=== PATIENT | female | born 1965 | race Caucasian/White ===

== ENCOUNTER → 2019-01-16 | Outpatient (CLI) | payer BC ==
--- NOTE | 2019-01-16 15:04 | Diagnostic Imaging Report ---
INDICATION: History of kidney stones. COMPARISON: 03/28/2007. FINDINGS: Two frontal radiographic views of the abdomen were obtained and show nondistended loops of small bowel. [id number]-sd-[id number] air and stool is noted scattered throughout the colon. No unexpected extraosseous calcifications or radiopaque foreign bodies are seen. Surgical clips are noted within the right upper abdominal quadrant. Bony structures show no gross acute abnormalities. IMPRESSION: 1. Nondistended small bowel gas pattern. 2. No unexpected extraosseous calcifications. Dictated by: Dictated on workstation # [id number]
== END ==
LOC: RAD FS 13:08
PROVIDERS: ATTEND Urology
DX: Z03.89 Encounter for observation for other suspected diseases and conditions ruled out (principal); Z87.442 Personal history of urinary calculi
CPT/HCPCS: 74018

== ENCOUNTER 2019-04-09 04:03 | Emergency (ER) | payer BC ==
[~2019-04-09] VITALS: Ht 152 cm; Wt 86.0 kg
[2019-04-09] MEDS ORDERED: morphine INJ 10 MG/ML 1ML (SYR OR VIAL) IVP STA (04:20)
[2019-04-09] MEDS ORDERED: ONDANSETRON 4 MG/2 ML (SDV) Z0FRAN IVP ONE (04:30)
[2019-04-09] MEDS ORDERED: NS IV 1000 ML 1,000 ML IV SCH (04:30)
[2019-04-09] MEDS ORDERED: KETOROLAC 30 MG/ML VIAL IVP ONE (04:30)
[2019-04-09 04:54] LABS: HEMATOCRIT 41 % (35-52); HEMOGLOBIN 12.9 G/DL (11.5-16.0); MEAN CORPUSCULAR HEMOGLOBIN 29 PG (25-34); WHITE BLOOD COUNT 9.2 10^3/uL (4.3-11.0)
[2019-04-09 04:55] LABS: BASOPHILS % (AUTO) 0 % (0-10); EOSINOPHILS # (AUTO) 0.3 10^3/uL (0.0-0.3); EOSINOPHILS % (AUTO) 4 % (0-10); LYMPHOCYTES % (AUTO) 33 % (12-44); MEAN CORPUSCULAR HGB CONC 32 G/DL (32-36); MEAN CORPUSCULAR VOLUME 93 FL (80-99); MEAN PLATELET VOLUME 9.5 FL (7.4-10.4); MONOCYTES # (AUTO) 0.7 X 10^3 (0.0-1.0); MONOCYTES % (AUTO) 7 % (0-12); NEUTROPHILS # (AUTO) 5.1 X 10^3 (1.8-7.8); NEUTROPHILS % (AUTO) 56 % (42-75); PLATELET COUNT 326 10^3/uL (130-400); RED CELL DISTRIBUTION WIDTH 14.9 % (10.0-14.5)
[2019-04-09 05:09] LABS: CREATININE SERUM 1.41 MG/DL (0.60-1.30); POTASSIUM 4.4 MMOL/L (3.6-5.0)
[2019-04-09 05:10] LABS: ALBUMIN 4.1 GM/DL (3.2-4.5); BILIRUBIN,TOTAL 0.2 MG/DL (0.1-1.0); CALCIUM 9.4 MG/DL (8.5-10.1); TOTAL PROTEIN 7.4 GM/DL (6.4-8.2)
--- NOTE | 2019-04-09 05:45 | ED Abdominal Pain ---
General Chief Complaint: Abdominal/GI Problems Stated Complaint: SEVER LT SIDE PAIN Nursing Triage Note: PT AMBULATE TO ROOM FS02 WITH C/O LEFT SIDED ABD PAIN. PT STATES SHE HAS KIDNEY STONES AND SHE THINKS THEY ARE MOVING. Sepsis Screen: No Definite Risk Exam Limitations: No Limitations History of Present Illness Date Seen by Provider: Apr 09, 2019 Time Seen by Provider: 04:30 Initial Comments Patient is a 53-year-old female with history of kidney stones with known left kidney stone and presents with acute onset left flank pain starting approximately one hour prior to ED arrival. Pain is nonradiating. Pain waxes and wanes and is rated moderate to severe. It is associated with nausea vomiting and sweats. No urinary frequency urgency or dysuria. Patient states she has been evaluated by her urologist is currently set up to have it removed in 2 weeks. No other symptoms or complaints. Severity/Quality: Severe, Aching Radiation: Flank Activities at Onset: None Associated Symptoms: Back Pain Allergies and Home Medications Allergies Coded Allergies: Clarithromycin (Unverified Allergy, Unknown, 03/28/07) Patient Home Medication List Home Medication List Reviewed: Yes Review of Systems Review of Systems Constitutional: see HPI EENTM: See HPI Respiratory: See HPI Cardiovascular: See HPI Gastrointestinal: See HPI Genitourinary: See HPI Musculoskeletal: back pain Skin: see HPI Psychiatric/Neurological: See HPI Endocrine: See HPI Hematologic/Lymphatic: See HPI Past Llvolib-Yaygnh-Qrvjkf Hx Patient Social History Alcohol Use: Denies Use Recreational Drug Use: No Smoking Status: Never a Smoker 2nd Hand Smoke Exposure: No Recent Foreign Travel: No Contact w/Someone Who Travel: No Recent Infectious Disease Expo: No Recent Hopitalizations: No Physical Abuse: No Sexual Abuse: No Mistreated: No Fear: No Seasonal Allergies Seasonal Allergies: No Past Medical History Surgeries: Yes Gallbladder, Hysterectomy Respiratory: No Cardiac: No Neurological: No Genitourinary: Yes Kidney Stones Gastrointestinal: No Gall Bladder Disease Musculoskeletal: No Endocrine: Yes Diabetes, Insulin dep HEENT: No Loss of Vision: Denies Hearing Impairment: Denies Cancer: No Psychosocial: No Integumentary: No Blood Disorders: No Physical Exam Vital Signs Vital Signs - First Documented 04/09/19 04:09 Temp 36.0 Pulse 85 Resp 18 B/P (MAP) 164/92 Pulse Ox 97 O2 Delivery Room Air Capillary Refill : Less Than 3 Seconds Height/Weight/BMI Height: '" Weight: lbs. oz. kg; 37.00 BMI Method: General Appearance: moderate distress HEENT: PERRL/EOMI, normal ENT inspection Neck: non-tender, supple Respiratory: chest non-tender, lungs clear, normal breath sounds Cardiovascular: normal peripheral pulses, regular rate, rhythm Gastrointestinal: soft; No tenderness Extremities: normal range of motion, non-tender, no pedal edema Back: normal inspection, no CVA tenderness Neurologic/Psychiatric: alert, normal mood/affect, oriented x 3 Skin: normal color Focused Exam Sepsis Stage: Ruled Out Progress/Results/Core Measures Results/Orders Lab Results Laboratory Tests Test 04/09/19 04:25 04/09/19 05:38 Range/Units White Blood Count 9.2 4.3-11.0 10^3/uL Red Blood Count 4.39 4.35-5.85 10^6/uL Hemoglobin 12.9 11.5-16.0 G/DL Hematocrit 41 35-52 % Mean Corpuscular Volume 93 80-99 FL Mean Corpuscular Hemoglobin 29 25-34 PG Mean Corpuscular Hemoglobin Concent 32 32-36 G/DL Red Cell Distribution Width 14.9 H 10.0-14.5 % Platelet Count 326 130-400 10^3/uL Mean Platelet Volume 9.5 7.4-10.4 FL Neutrophils (%) (Auto) 56 42-75 % Lymphocytes (%) (Auto) 33 12-44 % Monocytes (%) (Auto) 7 0-12 % Eosinophils (%) (Auto) 4 0-10 % Basophils (%) (Auto) 0 0-10 % Neutrophils # (Auto) 5.1 1.8-7.8 X 10^3 Lymphocytes # (Auto) 3.0 1.0-4.0 X 10^3 Monocytes # (Auto) 0.7 0.0-1.0 X 10^3 Eosinophils # (Auto) 0.3 0.0-0.3 10^3/uL Basophils # (Auto) 0.0 0.0-0.1 10^3/uL Sodium Level 142 135-145 MMOL/L Potassium Level 4.4 3.6-5.0 MMOL/L Chloride Level 103 98-107 MMOL/L Carbon Dioxide Level 26 21-32 MMOL/L Anion Gap 13 5-14 MMOL/L Blood Urea Nitrogen 21 H 7-18 MG/DL Creatinine 1.41 H 0.60-1.30 MG/DL Estimat Glomerular Filtration Rate 39 BUN/Creatinine Ratio 15 Glucose Level 149 H 70-105 MG/DL Calcium Level 9.4 8.5-10.1 MG/DL Corrected Calcium 9.3 8.5-10.1 MG/DL Total Bilirubin 0.2 0.1-1.0 MG/DL Aspartate Amino Transf (AST/SGOT) 15 5-34 U/L Alanine Aminotransferase (ALT/SGPT) 16 0-55 U/L Alkaline Phosphatase 93 40-136 U/L Total Protein 7.4 6.4-8.2 GM/DL Albumin 4.1 3.2-4.5 GM/DL Lipase 85 H 8-78 U/L My Orders Orders - NILSON CANTU DO Morphine Injection (Morphine Injection (04/09/19 04:20) Ondansetron Injection (Zofran Injectio (04/09/19 04:30) Ns Iv 1000 Ml (Sodium Chloride 0.9%) (04/09/19 04:30) Cbc With Automated Diff (04/09/19 04:20) Comprehensive Metabolic Panel (04/09/19 04:20) Urinalysis (04/09/19 04:20) Lipase (04/09/19 04:20) Ct Abdomen/Pelvis Wo (04/09/19 04:20) Ketorolac Injection (Toradol Injection) (04/09/19 04:30) Medications Given in ED Current Medications Medications Dose Ordered Sig/Cass Route Start Time Stop Time Status Last Admin Dose Admin Ketorolac Tromethamine 30 mg ONCE ONCE IVP 04/09/19 04:30 04/09/19 04:31 DC 04/09/19 04:40 30 MG Ondansetron HCl 8 mg ONCE ONCE IVP 04/09/19 04:30 04/09/19 04:31 DC 04/09/19 04:33 8 MG Vital Signs/I&O 04/09/19 04:09 Temp 36.0 Pulse 85 Resp 18 B/P (MAP) 164/92 Pulse Ox 97 O2 Delivery Room Air Blood Pressure Mean: 116 Departure Communication (Admissions) Flank pain nausea resolved with IV fluids, pain and nausea medication. CT lab reviewed. Patient has obstructive proximal right ureteral stone with hyd ronephrosis. Patient prefers to follow up with her urologist as an outpatient in the next 1-2 days. Will continue supportive treatment. Return precautions reviewed. Patient verbalizes understanding and agreement discharge instructions prior to departure.. Impression Primary Impression: Kidney stone on left side Disposition: HOME, SELF-CARE Condition: Stable Transfer Method of Transfer: Private Vehicle Departure-Patient Inst. Decision time for Depature: 05:56 Referrals: [facility] (PCP) Primary Care Physician ASHLEY SINGER APRN (Family) Primary Care Physician Patient Instructions: Kidney Stones in Adults Add. Discharge Instructions: Please fill medications upon leaving pharmacy. Increase fluids and strain urine for stone. Contact your urologist in follow-up within the next 1-2 days for reevaluation. Return to the ED if new or worsening symptoms. All discharge instructions reviewed with patient and/or family. Voiced understanding. Scripts Ondansetron (Ondansetron Odt) 4 Mg Tab.rapdis 4 MG PO Q6H, #10 TAB Prov: NILSON CANTU DO 04/09/19 Tamsulosin HCl (Flomax) 0.4 Mg Cap 0.4 MG PO DAILY, #10 CAP Prov: NILSON CANTU DO 04/09/19 Oxycodone HCl/Acetaminophen (Percocet 5-325 mg Tablet) 1 Each Tablet 1 TAB PO Q4H for PAIN-MODERATE MDD 6 TABS for 7 Days, #15 TAB Prov: NILSON CANTU DO 04/09/19 NILSON CANTU DO Apr 09, 2019 05:45
[2019-04-09 05:53] LABS: CLARITY,URINE SLIGHTLY CLOUDY; COLOR,URINE OTHER; PH,URINE 6.5 (5-9)
[2019-04-09 05:54] LABS: BACTERIA,URINE MODERATE /HPF; BILIRUBIN,URINE NEGATIVE (NEGATIVE); GLUCOSE, URINE (UA) 2+ (NEGATIVE); KETONES,URINE NEGATIVE (NEGATIVE); LEUKOCYTE ESTERASE ,URINE NEGATIVE (NEGATIVE); NITRITE,URINE NEGATIVE (NEGATIVE); PROTEIN,URINE TRACE (NEGATIVE); SQUAMOUS EPITHELIAL CELL,UR 0-2 /HPF; UROBILINOGEN,URINE 0.2 MG/DL (NORMAL); WBC,URINE 0-2 /HPF
[2019-04-09 05:56] LABS: RBC,URINE 50-100 /HPF
[2019-04-09] MEDS ORDERED: OXYC1TAB87 PO (05:58)
[2019-04-09] MEDS ORDERED: ONDA4TAB11 PO (05:58)
[2019-04-09] MEDS ORDERED: TAMS0.4C98 PO (05:58)
[2019-04-09 06:08] VITALS: BP 130/84
--- NOTE | 2019-04-09 06:10 | Diagnostic Imaging Report ---
PROCEDURE: CT abdomen and pelvis without contrast. TECHNIQUE: Multiple contiguous axial images were obtained through the abdomen and pelvis without the use of intravenous contrast. Auto Exposure Controls were utilized during the CT exam to meet ALARA standards for radiation dose reduction. INDICATION: Left-sided abdominal pain. Findings: No comparison is available. Limited views of the lower thorax are unremarkable. Liver is normal. No focal liver lesions are seen. Gallbladder is absent. There is no biliary ductal dilation. Pancreas, spleen and adrenal glands are normal. Right kidney is atrophic. There is a 4 mm obstructing stone at the left ureteropelvic junction with mild left hydronephrosis. There are extensive peripelvic cysts of the left. Left kidney is hypertrophic related atrophy of the right kidney. Urinary bladder is normal. No dilated loops of large or small bowel. No bowel obstruction or inflammation. 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 No lymphadenopathy is seen in the abdomen or pelvis. No free fluid or air. Abdominal aorta is normal in caliber. There are no suspicious osseous lesions. Impression: 1. Obstructing 4 mm stone at the left ureteral pelvic junction with mild left hydronephrosis. 2. CT findings of mesenteric panniculitis. Dictated by: Dictated on workstation # [id number]
== END 2019-04-09 06:07 | disposition home or self-care (01) ==
LOC: EDUNIT# 04:03 → ER FS 04:05
DX: N13.2 Hydronephrosis with renal and ureteral calculous obstruction (principal); E11.9 Type 2 diabetes mellitus without complications; Z88.8 Allergy status to other drugs, medicaments and biological substances; Z90.710 Acquired absence of both cervix and uterus
CPT/HCPCS: 36415; 74176; 80053; 81000; 83690; 85025

== ENCOUNTER → 2019-07-12 | Outpatient (CLI) | payer BC ==
[~2019-07-12] MED LIST: ONDA4TAB11 PO; OXYC1TAB87 PO; TAMS0.4C98 PO
--- NOTE | 2019-07-12 11:22 | Diagnostic Imaging Report ---
INDICATION: History of kidney stones. Follow-up. COMPARISON: 01/16/2019. FINDINGS: Two supine radiographic views of the abdomen were obtained and demonstrate nondistended loops of small bowel. There is no large collection of free peritoneal air. Mild air and stool are seen scattered throughout the colon. No unexpected extraosseous calcifications or radiopaque foreign bodies are seen. Bony structures show no gross acute abnormalities. IMPRESSION: 1. Nonobstructed small bowel gas pattern. Dictated by: Dictated on workstation # [id number]
== END ==
LOC: RAD FS 10:01
PROVIDERS: ATTEND Urology
DX: Z87.442 Personal history of urinary calculi (principal)
CPT/HCPCS: 74018

== ENCOUNTER 2019-08-09 00:25 | Emergency (ER) | payer BC ==
[~2019-08-09] VITALS: Ht 152.4 cm; Wt 88.6 kg
[~2019-08-09 00:25] MED LIST changes: -TAMS0.4C98 PO; +TMSL.4C PO
--- NOTE | 2019-08-09 00:35 | ED Abdominal Pain ---
General Chief Complaint: Abdominal/GI Problems Stated Complaint: RIGHT SIDE PAIN History of Present Illness Date Seen by Provider: Aug 09, 2019 Time Seen by Provider: 00:36 Initial Comments Patient is a 54 y/o female who presents to the ER c/o abdominal pain. She had onset of right lower quadrant pain around 10:00 this evening. She was at rest when pain started. Pain began suddenly and is described to be sharp and severe. Pain does not radiate. Patient does have prior history of kidney stones and has been evaluated for this complaint as recently as June but she feels this pain is different. She did not have any nausea or vomiting. No recent fever. No traumatic event. Her surgical history is positive for prior lithotripsy, cholecystectomy. Allergies and Home Medications Allergies Coded Allergies: Clarithromycin (Unverified Allergy, Unknown, 03/28/07) Home Medications Ibuprofen 800 Mg Tablet, 800 MG PO Q8H PRN for PAIN Prescribed by: JAMIE AVILA on 08/09/19230 Ondansetron 4 Mg Tab.rapdis, 4 MG PO Q6H Prescribed by: NILSON CANTU on 04/09/19 0558 Oxycodone HCl/Acetaminophen 1 Each Tablet, 1 TAB PO Q4H Prescribed by: NILSON CANTU on 04/09/19 0558 Oxycodone HCl/Acetaminophen 1 Each Tablet, 2 TAB PO Q6H PRN for PAIN-MODERATE Prescribed by: JAMIE AVILA on 08/09/19230 Tamsulosin HCl 0.4 Mg Cap, 0.4 MG PO DAILY Prescribed by: NILSON CANTU on 04/09/19 0558 Patient Home Medication List Home Medication List Reviewed: Yes Review of Systems Review of Systems Constitutional: no symptoms reported EENTM: No Symptoms Reported Respiratory: No Symptoms Reported Cardiovascular: No Symptoms Reported Gastrointestinal: See HPI Genitourinary: No Symptoms Reported Musculoskeletal: no symptoms reported Skin: no symptoms reported Psychiatric/Neurological: No Symptoms Reported All Other Systems Reviewed Negative Unless Noted: Yes Past Nhxqbui-Lrjorp-Yxlqgt Hx Patient Social History 2nd Hand Smoke Exposure: No Recent Foreign Travel: No Contact w/Someone Who Travel: No Recent Hopitalizations: No Seasonal Allergies Seasonal Allergies: No Past Medical History Surgeries: Yes Gallbladder, Hysterectomy Respiratory: No Cardiac: No Neurological: No Genitourinary: Yes Kidney Stones Gastrointestinal: No Gall Bladder Disease Musculoskeletal: No Endocrine: Yes Diabetes, Insulin dep HEENT: No Loss of Vision: Denies Hearing Impairment: Denies Cancer: No Psychosocial: No Integumentary: No Blood Disorders: No Physical Exam Vital Signs Vital Signs - First Documented 08/09/19 00:30 Temp 36.4 Pulse 118 Resp 20 B/P (MAP) 159/91 (113) Pulse Ox 96 O2 Delivery Room Air Capillary Refill : Height/Weight/BMI Height: '" Weight: lbs. oz. kg; 37.00 BMI Method: General Appearance: WD/WN, no apparent distress HEENT: PERRL/EOMI, normal ENT inspection, TMs normal Neck: full range of motion Respiratory: lungs clear, normal breath sounds, no respiratory distress Cardiovascular: regular rate, rhythm, no edema, no murmur Gastrointestinal: normal bowel sounds, non tender, soft Extremities: normal range of motion Neurologic/Psychiatric: alert, normal mood/affect, oriented x 3 Skin: normal color, warm/dry Progress/Results/Core Measures Results/Orders Lab Results Laboratory Tests Test 08/09/19 00:45 08/09/19 01:00 Range/Units Urine Color YELLOW Urine Clarity CLEAR Urine pH 5.5 5-9 Urine Specific [place] 1.025 H 1.016-1.022 Urine Protein NEGATIVE NEGATIVE Urine Glucose (UA) NEGATIVE NEGATIVE Urine Ketones NEGATIVE NEGATIVE Urine Nitrite NEGATIVE NEGATIVE Urine Bilirubin NEGATIVE NEGATIVE Urine Urobilinogen 0.2 < = 1.0 MG/DL Urine Leukocyte Esterase TRACE NEGATIVE Urine RBC (Auto) NEGATIVE NEGATIVE Urine RBC 0-2 /HPF Urine WBC 10-25 H /HPF Urine Squamous Epithelial Cells 5-10 /HPF Urine Crystals NONE /LPF Urine Bacteria FEW H /HPF Urine Casts NONE /LPF Urine Mucus SMALL H /LPF Urine Culture Indicated YES White Blood Count 9.8 4.3-11.0 10^3/uL Red Blood Count 4.07 L 4.35-5.85 10^6/uL Hemoglobin 12.1 11.5-16.0 G/DL Hematocrit 37 35-52 % Mean Corpuscular Volume 92 80-99 FL Mean Corpuscular Hemoglobin 30 25-34 PG Mean Corpuscular Hemoglobin Concent 32 32-36 G/DL Red Cell Distribution Width 14.2 10.0-14.5 % Platelet Count 275 130-400 10^3/uL Mean Platelet Volume 9.8 7.4-10.4 FL Neutrophils (%) (Auto) 77 H 42-75 % Lymphocytes (%) (Auto) 12 12-44 % Monocytes (%) (Auto) 7 0-12 % Eosinophils (%) (Auto) 3 0-10 % Basophils (%) (Auto) 1 0-10 % Neutrophils # (Auto) 7.6 1.8-7.8 X 10^3 Lymphocytes # (Auto) 1.1 1.0-4.0 X 10^3 Monocytes # (Auto) 0.7 0.0-1.0 X 10^3 Eosinophils # (Auto) 0.3 0.0-0.3 10^3/uL Basophils # (Auto) 0.1 0.0-0.1 10^3/uL Neutrophils % (Manual) 77 % Lymphocytes % (Manual) 13 % Monocytes % (Manual) 3 % Eosinophils % (Manual) 2 % Basophils % (Manual) 1 % Band Neutrophils 3 % Reactive Lymphocytes 1 % Toxic Granulation 4+ Microcytosis MODERATE Sodium Level 139 135-145 MMOL/L Potassium Level 4.7 3.6-5.0 MMOL/L Chloride Level 101 98-107 MMOL/L Carbon Dioxide Level 23 21-32 MMOL/L Anion Gap 15 H 5-14 MMOL/L Blood Urea Nitrogen 23 H 7-18 MG/DL Creatinine 1.00 0.60-1.30 MG/DL Estimat Glomerular Filtration Rate 58 BUN/Creatinine Ratio 23 Glucose Level 233 H 70-105 MG/DL Calcium Level 8.8 8.5-10.1 MG/DL Smear Scan 0.04 My Orders Orders - AJMIE AVILA DO Ed Iv/Invasive Line Start (08/09/19 00:39) Cbc And Manual Diff (08/09/19 00:39) Basic Metabolic Panel (08/09/19 00:39) Urinalysis (08/09/19 00:39) Ns Iv 1000 Ml (Sodium Chloride 0.9%) (08/09/19 00:45) Ondansetron Injection (Zofran Injectio (08/09/19 00:45) Ketorolac Injection (Toradol Injection) (08/09/19 00:45) Urine Culture (08/09/19 00:45) Ct Abdomen/Pelvis W (08/09/19 01:06) Iohexol Injection (Omnipaque 350 Mg/Ml 1 (08/09/19 01:45) Received Contrast (Hold Metformin- Contr (08/09/19 01:45) Ns (Ivpb) (Sodium Chloride 0.9% Ivpb Bag (08/09/19 01:45) Morphine Injection (Morphine Injection (08/09/19 02:32) Medications Given in ED Current Medications Medications Dose Ordered Sig/Cass Route Start Time Stop Time Status Last Admin Dose Admin Iohexol 100 ml ONCE ONCE IV 08/09/19 01:45 08/09/19 01:46 DC 08/09/19 01:40 100 ML Ketorolac Tromethamine 30 mg ONCE ONCE IVP 08/09/19 00:45 08/09/19 00:46 DC 08/09/19 01:05 30 MG Ondansetron HCl 4 mg ONCE ONCE IVP 08/09/19 00:45 08/09/19 00:46 DC 08/09/19 01:05 4 MG Sodium Chloride 100 ml ONCE ONCE IV 08/09/19 01:45 08/09/19 01:46 DC 08/09/19 01:40 100 ML Vital Signs/I&O 08/09/19 00:30 Temp 36.4 Pulse 118 Resp 20 B/P (MAP) 159/91 (113) Pulse Ox 96 O2 Delivery Room Air Progress Progress Note : Time: 00:45 Progress Note Patient is seen and examined on arrival to her room. She is in no acute distre ss. Her abdominal exam is revealing of a soft, nondistended abdomen that is subjectively tender over the right lower quadrant only but no guarding or rebound is present. No flank pain. Given her history of stones, urinalysis is ordered. We will give Toradol and Zofran as the patient feels that she may become nauseated from the pain. We'll check basic labs. 02:45: All results are reviewed and discussed with the patient. All her questions are answered. Overall, workup is negative for kidney stone although t here is some hydronephrosis on the right hand possibility is present and the patient passed stone already. Her pain was much improved with Toradol in the ER and 1 dose of morphine. She does have white blood cells noted in the urine and is discharged home with prescription for Motrin, Macrobid, and Percocet if her pain becomes severe again. I recommended she contact her primary urologist tomorrow for close follow-up. Return to the ER for any new or worsening symptoms. Departure Impression Primary Impression: Kidney stone Disposition: 01 HOME, SELF-CARE Condition: Improved Departure-Patient Inst. Referrals: [facility] (PCP) Primary Care Physician ASHLEY SINGER APRN (Family) Primary Care Physician Scripts Oxycodone HCl/Acetaminophen (Percocet 5-325 mg Tablet) 1 Each Tablet 2 TAB PO Q6H PRN for PAIN-MODERATE MDD 6 for 7 Days, #21 TAB Prov: JAMIE AVILA DO 08/09/19 Ibuprofen (Ibuprofen) 800 Mg Tablet 800 MG PO Q8H PRN for PAIN, #30 TAB 0 Refills Prov: JAMIE AVILA DO 08/09/19 JAMIE AVILA DO Aug 09, 2019 00:35
[2019-08-09] MEDS ORDERED: KETOROLAC 30 MG/ML VIAL IVP ONE (00:45)
[2019-08-09] MEDS ORDERED: ONDANSETRON 4 MG/2 ML (SDV) Z0FRAN IVP ONE (00:45)
[2019-08-09] MEDS ORDERED: NS IV 1000 ML 1,000 ML IV SCH (00:45)
[2019-08-09 01:00] LABS: BILIRUBIN,URINE NEGATIVE (NEGATIVE); CLARITY,URINE CLEAR; COLOR,URINE YELLOW; GLUCOSE, URINE (UA) NEGATIVE (NEGATIVE); KETONES,URINE NEGATIVE (NEGATIVE); NITRITE,URINE NEGATIVE (NEGATIVE); PH,URINE 5.5 (5-9); PROTEIN,URINE NEGATIVE (NEGATIVE)
[2019-08-09 01:01] LABS: BACTERIA,URINE FEW /HPF; LEUKOCYTE ESTERASE ,URINE TRACE (NEGATIVE); RBC,URINE 0-2 /HPF
[2019-08-09 01:08] LABS: EOSINOPHILS % (AUTO) 3 % (0-10); HEMATOCRIT 37 % (35-52); HEMOGLOBIN 12.1 G/DL (11.5-16.0); LYMPHOCYTES % (AUTO) 12 % (12-44); MEAN CORPUSCULAR HEMOGLOBIN 30 PG (25-34); MEAN CORPUSCULAR HGB CONC 32 G/DL (32-36); MEAN CORPUSCULAR VOLUME 92 FL (80-99); MEAN PLATELET VOLUME 9.8 FL (7.4-10.4); MONOCYTES % (AUTO) 7 % (0-12); NEUTROPHILS % (AUTO) 77 % (42-75); PLATELET COUNT 275 10^3/uL (130-400); RED CELL DISTRIBUTION WIDTH 14.2 % (10.0-14.5); WHITE BLOOD COUNT 9.8 10^3/uL (4.3-11.0)
[2019-08-09 01:09] LABS: BASOPHILS # (AUTO) 0.1 10^3/uL (0.0-0.1); BASOPHILS % (AUTO) 1 % (0-10); EOSINOPHILS # (AUTO) 0.3 10^3/uL (0.0-0.3); LYMPHOCYTES # (AUTO) 1.1 X 10^3 (1.0-4.0); MONOCYTES # (AUTO) 0.7 X 10^3 (0.0-1.0); NEUTROPHILS # (AUTO) 7.6 X 10^3 (1.8-7.8); SMEAR SCAN COMMENT 0.04
[2019-08-09 01:24] LABS: BAND NEUTROPHILS 3 %; BASOPHILS % (MANUAL) 1 %; EOSINOPHILS % (MANUAL) 2 %; LYMPHOCYTES % (MANUAL) 13 %; MICROCYTOSIS MODERATE; MONOCYTES % (MANUAL) 3 %; NEUTROPHILS % (MANUAL) 77 %; REACTIVE LYMPHOCYTES 1 %; TOXIC GRANULATION/VACUOLAZATIO 4+
[2019-08-09 01:28] LABS: CALCIUM 8.8 MG/DL (8.5-10.1); POTASSIUM 4.7 MMOL/L (3.6-5.0)
[2019-08-09] MEDS ORDERED: HOLD METFORMIN - RECEIVED CONTRAST 20 ML VIAL IV SCH (01:45)
[2019-08-09] MEDS ORDERED: IOHEXOL 350 MG/ML 100 ML (OMNIPAQUE 350) VIAL IV ONE (01:45)
[2019-08-09] MEDS ORDERED: NS 100 ML (IVPB) BAG IV ONE (01:45)
[2019-08-09] MEDS ORDERED: OXYC-199 PO (02:31)
[2019-08-09] MEDS ORDERED: IBUP-1780 PO (02:31)
[2019-08-09] MEDS ORDERED: morphine INJ 10 MG/ML 1ML (SYR OR VIAL) IVP STA (02:32)
[2019-08-09] MEDS ORDERED: NITR-65 PO (02:35)
[2019-08-09 02:40] VITALS: BP 148/88
--- NOTE | 2019-08-09 07:10 | Diagnostic Imaging Report ---
PROCEDURE: CT abdomen and pelvis with contrast. TECHNIQUE: Multiple contiguous axial images were obtained through the abdomen and pelvis after administration of intravenous contrast. Auto Exposure Controls were utilized during the CT exam to meet ALARA standards for radiation dose reduction. INDICATION: Watching TV with sharp pain in the right lower quadrant. History of kidney stones. COMPARISON: 04/09/2019 FINDINGS: The lung bases are clear. The heart is normal in size. There is no pericardial effusion. The liver demonstrates no focal lesions. Cholecystectomy clips are noted. The spleen appears normal. The adrenal glands are normal. The pancreas appears normal. Multiple parapelvic cysts are seen bilaterally. There is also right hydronephrosis with marked right hydroureter. There is a transition point in the distal ureter a few centimeters from the ureterovesicular junction. No associated stone is seen. There is edema about the right ureter and the right kidney. There is marked cortical thinning of the right kidney which is similar to the prior exam. The bowel loops are nondistended without obstruction. There is a small to moderate amount of stool in the colon. No appendicitis is seen. No free fluid or free air is seen in the abdomen. No acute osseous abnormality is seen. IMPRESSION: 1. Right hydroureter and hydronephrosis with associated fat stranding and abrupt transition point in the distal ureter without associated calculus at that point. Dictated by: Dictated on workstation # [id number]
== END 2019-08-09 02:40 | disposition home or self-care (01) ==
LOC: EDUNIT# 00:25 → ER FS 00:27
DX: N13.2 Hydronephrosis with renal and ureteral calculous obstruction (principal); E11.9 Type 2 diabetes mellitus without complications; Z90.49 Acquired absence of other specified parts of digestive tract; Z88.1 Allergy status to other antibiotic agents; Z90.710 Acquired absence of both cervix and uterus; Z87.442 Personal history of urinary calculi
CPT/HCPCS: 36415; 74177; 80048; 81000; 85007; 85027; 87077; 87088; 87186

== ENCOUNTER → 2019-09-05 | Outpatient (CLI) | payer BC ==
[~2019-09-05] MED LIST changes: +CATHETER FLUSH 10 ML SYR IV PRN; +FUROSEMIDE 40 MG/4 ML INJ (LASIX) ONE; +IBUP-1780 PO; +NITR-65 PO; +OXYC-199 PO
--- NOTE | 2019-09-06 17:00 | Diagnostic Imaging Report ---
EXAM: Nuclear Medicine MAG3 renal study. DATE: September 05, 2019. INDICATION: 54-year-old female, hydronephrosis. COMPARISON: CT abdomen/pelvis August 09, 2019. TECHNIQUE: 5.15 mCi of technetium labeled MAG3 was administered. 40 mg of intravenous Lasix was administered during the course of the examination. FINDINGS: There is asymmetric renal perfusion with 83% uptake by the left kidney and 17% uptake by the right kidney. There is normal clearance of radiotracer activity from the left kidney. There is initial delay in clearance of radiotracer by the right kidney with a half life for clearance following Lasix administration on the right measured at 17 minutes. IMPRESSION: 1. No evidence of fixed urinary collecting system obstruction on the left. 2. There is mild delay in excretion of radiotracer from the right kidney although not specifically meeting half-life measurements for definite diagnosis of a fixed obstruction. There is note of right-sided hydroureteronephrosis on prior recent CT abdomen and pelvis. Dictated on workstation # [id number]
== END ==
LOC: CARD 08:45
PROVIDERS: ATTEND Urology
DX: N13.30 Unspecified hydronephrosis (principal)
CPT/HCPCS: 78708